=== PATIENT | male | born 1970 | race Caucasian/White ===

== ENCOUNTER 2017-03-12 19:01 | Emergency (ER) | payer MEDICAID ==
[~2017-03-12] VITALS: Ht 188 cm; Wt 78.6 kg
[2017-03-12 19:07] VITALS: BP 108/68
[2017-03-12] MEDS ORDERED: KETOROLAC 30 MG/1 ML IM ONE (20:00)
[2017-03-12] MEDS ORDERED: KETOROLAC 30 MG/1 ML ONE (20:08)
[2017-03-12] MEDS ORDERED: LIDOCAINE 1%, 10ML INFIL ONE (20:30)
[2017-03-12] MEDS ORDERED: LIDOCAINE 1%, 20ML ONE (20:53)
== END 2017-03-12 22:08 | disposition home or self-care (01) ==
LOC: ED 21:20
DX: S80.02XA Contusion of left knee, initial encounter (principal); X50.1XXA Overexertion from prolonged static or awkward postures, initial encounter; Y93.89 Activity, other specified; Y92.89 Other specified places as the place of occurrence of the external cause; Y99.8 Other external cause status
CPT/HCPCS: 20610; 73564; 96372; 99284; J1885

== ENCOUNTER 2018-12-13 13:35 | Emergency (ER) | payer MEDICAID ==
[~2018-12-13] VITALS: Ht 177.8 cm; Wt 85.0 kg
--- NOTE | 2018-12-13 14:40 | NUR ---
REPORT TAKEN FROM GABRIEL KHAN. PT SLEEPING INTERMITTENTLY, ON GURNEY. RESPS EVEN AND UNLABORED. XRAY COMPLETE, ICE APPLIED, EDT AT BEDSIDE TO APPLY SPLINT. BP AND SPO2 MONITORS IN PLACE, VSS.
--- NOTE | 2018-12-13 15:00 | NUR ---
SPLINT APPLIED BY EDT, [facility] INTACT S/P SPLINT PLACEMENT. PT IS DROWSY BUT ORIENTED X 4. BED LOCKED AND IN LOWEST POSITION, CALL LIGHT IN REACH. PT INSTRUCTED TO USE CALL LIGHT, INSTRUCTED NOT TO GET OUT OF BED WITHOUT STAFF ASSIST. PT VERBALIZES UNDERSTANDING. EDPA LONG AT BEDSIDE. PT TO BE ADMITTED WHEN A&O AND AMBULATORY.
--- NOTE | 2018-12-13 16:12 | NUR ---
PT SLEEPING ON GURNEY, RESPS EVEN AND UNLABORED, NADN. CALL LIGHT IN REACH. BED REMAINS LOCKED AND IN LOWEST POSITION.
--- NOTE | 2018-12-13 17:18 | NUR ---
pt awakened, pt is drowsy but oriented x 4. neuro intact. RN attempted to ambulate pt, pt is unsteady and not able to ambulate safely without assistance. bp and spo2 monitors reattached. bed locked and in lowest position. call light in reach. urinal at bedside.
--- NOTE | 2018-12-13 17:36 | NUR ---
PT PROVIDED WITH MILK, CRACKERS AND CHEESE. TOLERATING WELL WITH NO S/SX ASPIRATION.
--- NOTE | 2018-12-13 18:09 | NUR ---
REPORT TO BREAK RN'S [place].
--- NOTE | 2018-12-13 18:49 | NUR ---
report received from [facility] Carlos Saavedra and Jaymie.
--- NOTE | 2018-12-13 19:17 | NUR ---
pt sleeping on gurney, resps even and unlabored, nadn. bed locked and in lowest position. call light and urinal in reach.
--- NOTE | 2018-12-13 19:56 | NUR ---
this RN provided pt with fitted crutches and education. RN attempted to ambulate pt with crutches, pt's gait is unsteady with crutches, unable to ambulate safely without assist. Pt requesting pain medication for left foot pain, NIKKI Strickland notified. pt back to bed, bed locked and in lowest position. call light in reach. urinal in reach.
[2018-12-13] MEDS ORDERED: ACETAMINOPHEN 325 MG TABLET ONE (20:49)
[2018-12-13] MEDS ORDERED: ACETAMINOPHEN 325 MG TABLET PO ONE (21:00)
--- NOTE | 2018-12-13 21:08 | NUR ---
Note matilde in EDM - 12/13/18 at 2110 by KEVIN pt given dc instructions and script. pt educated regarding rx for bentyl and phenergan rx. pt a&o, resps even and unlabored. no n/v at dc. pt did not produce stool sample prior to dc. pt amb to dc desk with steady gait, nadn at dc.
--- NOTE | 2018-12-13 21:10 | NUR ---
note undone, charted on wrong pt.
--- NOTE | 2018-12-13 21:11 | NUR ---
pt a&o x 4, resps even and unlabored. pt demonstrates steady gait with crutches provided. pt given dc instructions and cab voucher to alf at pt request. cms intact to left foot, splint in place. nadn at dc. all questions answered.
== END 2018-12-13 21:09 | disposition home or self-care (01) ==
LOC: ED 21:03
DX: G89.11 Acute pain due to trauma (principal); M25.572 Pain in left ankle and joints of left foot; M79.672 Pain in left foot; Z72.9 Problem related to lifestyle, unspecified; F10.10 Alcohol abuse, uncomplicated; F17.210 Nicotine dependence, cigarettes, uncomplicated; M10.9 Gout, unspecified; X58.XXXA Exposure to other specified factors, initial encounter; Y93.89 Activity, other specified; Y92.89 Other specified places as the place of occurrence of the external cause; Y99.8 Other external cause status
CPT/HCPCS: 99283

== ENCOUNTER 2020-04-17 13:42 | Emergency (ER) | payer SELFPAY ==
[~2020-04-17] VITALS: Ht 188 cm; Wt 86.5 kg
[2020-04-17 14:08] VITALS: BP 106/75
--- NOTE | 2020-04-17 14:44 | NUR ---
FIRST CONTACT WITH PT. PT STATED "MY LEFT EYE IS LIKE SWOLLEN SHUT. I WOKE UP LIKE THIS". DRAINING, REDNESS, SWELLING. PT'S AOX4. RESPS EVEN AND UNLABORED.
--- NOTE | 2020-04-17 14:47 | NUR ---
LEAD SETTER: PT AMBULATORY TO ROOM FROM LOBBY
[2020-04-17] MEDS ORDERED: FLUORESCEIN OPHTHALMIC 1 MG STRIP ONE (14:49)
[2020-04-17] MEDS ORDERED: PROPARACAINE OPHTH 0.5%, 15ML ONE (14:49)
--- NOTE | 2020-04-17 15:20 | NUR ---
Patient given discharge instructions and they have confirmed that they understand the instructions. Patient ambulatory with steady gait.
== END 2020-04-17 15:41 | disposition home or self-care (01) ==
LOC: ED 15:32
DX: B30.1 Conjunctivitis due to adenovirus (principal); H57.12 Ocular pain, left eye
CPT/HCPCS: 99283